=== PATIENT | female | born 1950 | race Caucasian/White ===

== ENCOUNTER 2017-03-06 13:14 | Emergency (ER) | payer OTHER ==
--- NOTE | ~2017-03-06 | CT2 ---
[facility] A Service of [facility] RADIOLOGY TEXT RESULTS PATIENT: GREGORY ZHANG LOCATION: [facility] : 54 UNIT #: [id number] AGE: [address]: Osorio Lau SEX: F ORDER DR: [id number] [facility] [address] [place], [place] [address] [id number] E MR#: [id number] Acc #: [id number] NAME: GREGORY ZHANG. : 1950 SEX: F STUDY DATE/TIME: 03/06/2017 13:56 UNIT: [facility] ROOM: STUDY DESCRIPTION: CT Abd and Pelv W Cont Attending Physician: Osorio Lau Ordering Physician: Osorio Lau Primary Care Physician: Rashel Westbrook M.D. MEDICAL IMAGING REPORT This report is preliminary unless electronic signature is present EXAM CT of the abdomen and pelvis with IV contrast, 03/06/[address] abdomen and pelvis without contrast dated 05/12/2016. HISTORY Patient has back pain. Rule out aortic disease. Pain radiates down the left leg for [address] exam was performed with one or more of the following radiation dose reduction techniques: automatic exposure control, adjustment of mA and/or kV according to patient size, and iterative reconstruction. FINDINGS CT of the abdomen and pelvis were obtained with IV contrast in the axial plane followed by sagittal and coronal reformats. LOWER CHEST: Lungs are relatively well aerated except for minimal atelectatic changes along the inferior left lingula near the left oblique fissure and in the inferior right middle lobe close to the right oblique fissure. There is a moderate hiatal hernia. Heart is of normal size. Mild degenerative changes are in the spine. ABDOMEN: Status post cholecystectomy. Tiny 4.5 mm cyst is seen in the left lobe of the liver, stable. Status post cholecystectomy with expected dilatation of the common bile duct. It is dilated to 1 cm. Visualized spleen, pancreas, kidneys do not demonstrate any well-defined abnormality. There is a nodular exophytic appearance on the right between the tail of the pancreas and the spleen measuring about 9 mm. It is unclear whether it is exophytic from the spleen or from the pancreas. Either way it was also seen on the prior study from 05/12/2016 and it is stable. It has STS. [facility] A Service of [facility] / [facility] RADIOLOGY TEXT RESULTS PATIENT: GREGORY ZHANG LOCATION: [facility] : 54 UNIT #: [id number] AGE: [address]: Osorio Lau SEX: F ORDER DR: normal enhancement of the solid organs without any additional enhancement. Small fatty umbilical hernia is seen. Diverticulosis is noted without evidence of acute diverticulitis. Appendix is within normal limits and is long in the right lower quadrant. Lack of oral contrast limits evaluation of hollow organs of the GI tract. Postoperative changes are noted in the lumbar spine with associated degenerative change. There is dextroscoliosis. Streak artifact from hardware is noted in the lumbar spine. There are pedicular screws noted from L2 to S1 with loosening of bilateral L2 and right S1 pedicular screw. Mild loosening of some of the other screws is difficult to characterize in this study. Mild loosening of the right L5 pedicle cannot be excluded. There is a levoscoliotic component involving the thoracic spine. PELVIS: Atrophied age-appropriate uterus is seen. Urinary bladder is unremarkable. Multiple diverticula are noted in the rectosigmoid colon without evidence of acute diverticulitis. Bilateral SI joint arthritic changes are seen. IMPRESSION 1. No evidence of acute abnormality in the abdomen or pelvis. 2. Diverticulosis, worst in the rectosigmoid colon followed by descending colon. No associated acute diverticulitis. 3. Status post cholecystectomy with expected dilatation of the common bile duct measuring up to the transverse dimension of 1 cm. 4. Moderate hiatal hernia. 5. Normal appendix. 6. Postoperative changes are noted in the lumbar spine as described above. Significant streak artifact is associated with the hardware. There appears to be loosening of bilateral L2 and right S1 screw with suspicious loosening of right L5 screw. Streak artifact from hardware limits evaluation. Varying degrees of degenerative changes are noted at multiple levels but there is also posterior decompression noted from L2 inferiorly to L5-S1 level. Correlate with postoperative note. 7. S-shaped scoliosis of the thoracolumbar spine is seen with associated degenerative disc disease and facet changes. 8. There is a 9 mm soft tissue nodule noted between the pancreas and the spleen exophytically arising from either one of those glands. It is having the normal density of the solid organs and is probably within normal limits, particularly given the stability since 2009. In the CT abdomen study from 2009 the nodule appeared to be arising from the spleen. Benign incidental finding which does not require any additional followup. 9. Tiny 4.5 mm lesion in the left lobe of the liver is probably a small cyst, stable since 2009. Dictated by... Golden Jimenez M.D. [facility] A Service of [facility] / [facility] RADIOLOGY TEXT RESULTS PATIENT: GREGORY ZHANG [id number] : 54 UNIT #: [id number] AGE: [address]: Osorio Lau SEX: F ORDER DR: THIS IS AN ELECTRONICALLY VERIFIED REPORT Golden Jimenez M.D. at 03/07/2017 1:46 PM CPR/noris TD: 03/07/2017 01:02 JOB #: [id number] MEDICAL IMAGING REPORT Page 1 of 1 COPY
[2017-03-06 13:02] LABS: URINE SOURCE CLEAN CATCH
[2017-03-06 13:08] LABS: URINE APPEARANCE CLOUDY; URINE BILIRUBIN NEG (NEG); URINE BLOOD NEG (NEG); URINE COLOR YELLOW; URINE GLUCOSE NEG (NEG); URINE KETONE NEG (NEG); URINE LEUKOCYTE ESTERASE 1+ (NEG); URINE NITRATE NEG (NEG); URINE PROTEIN NEG (NEG); URINE SPECIFIC GRAVITY 1.017 (1.003-1.035)
[2017-03-06 13:10] LABS: CULTURE INDICATED? YES; URBCS1 AUWI 0-2 /[HPF] (0-2); URINE BACTERIA AUWI 4+ (NEGATIVE); URINE SQUAMOUS EPITHELIAL CELL OCC /[HPF]
[~2017-03-06 13:14] MED LIST: ASPIRINEC PO; CRESTOR PO; CYMBALTA30 MG PO; DARVOCET-N 1001 TAB PO; FLAGYL PO; GABAPENTIN300 MG PO; LEXAPRO PO; LODINE PO; LORTAB 7.5-5001 TAB PO; MILK OF MAGNESIA PO; MOBIC15 MG PO; NAPROXEN PO; NASONEX17 GM; NEURONTIN; NEURONTIN PO; NORCO 5/325 TAB1 TAB PO; OXYCODON HCL-1 UDTAB PO; PREDNISONE PO; PRILOSEC20 M1 PO; ROBAXIN 750750 MG PO; SYNTHROID25 MCG PO; ZOLOFT; ZYRTEC PO
[2017-03-06 14:05] LABS: POC - CREATININE 1.16 mg/dL (0.44-1.03)
== END 2017-03-06 15:56 | disposition home or self-care (01) ==
LOC: CED 13:14
PROVIDERS: Emergency Medicine; Nurse Practitioner
DX: M54.42 Lumbago with sciatica, left side (principal); N39.0 Urinary tract infection, site not specified; M19.90 Unspecified osteoarthritis, unspecified site; I10 Essential (primary) hypertension; Z90.49 Acquired absence of other specified parts of digestive tract; Z98.51 Tubal ligation status; Z88.2 Allergy status to sulfonamides; Z88.5 Allergy status to narcotic agent
CPT/HCPCS: 74177; 81003; 82565; 87086; 87088; 87186; 96360; 99284; Q9967

== ENCOUNTER 2017-06-16 21:13 | Emergency (ER) | payer OTHER ==
[~2017-06-16] VITALS: Ht 152.4 cm; Wt 64.0 kg
[2017-06-16 22:27] LABS: BASOPHIL# 0.1 X10e3 (0-0.3); BASOPHIL% 0.8 % (0-2.5); EOSINOPHIL# 0.2 X10e3 (0-0.7); HEMOGLOBIN 12.8 gm/dL (12.0-16.0); LYMPHOCYTE# 3.4 X10e3 (1.0-3.5); LYMPHOCYTE% 37.1 % (17.0-45.0); MEAN CELL VOLUME 93.5 FL (83-96); MEAN CORPUSCULAR HEMOGLOBIN 32.3 PG (28-34); MEAN CORPUSCULAR HGB CONC 34.6 g/dL (30-36); MEAN PLATELET VOLUME 7.1 FL (6.5-11.5); MONOCYTE# 0.5 X10e3 (0-1.0); MONOCYTE% 5.6 % (3.0-12.0); NEUTROPHIL% 54.5 % (40-75); PLATELET COUNT 351 X10e3 (140-420); RED BLOOD COUNT 3.96 X10e (3.90-5.30); WHITE BLOOD COUNT 9.1 X10e3 (4.0-10.5)
[2017-06-16 22:30] LABS: DIFF IND NO
[2017-06-16 22:51] LABS: ALBUMIN SERUM 4.4 g/dL (3.5-5.0); BILIRUBIN,TOTAL 0.3 mg/dL (0.2-2.0); CALCIUM SERUM 9.4 mg/dL (8.4-10.2); CREATININE SERUM 1.1 mg/dL (0.6-1.4); POTASSIUM 3.6 mmol/L (3.5-5.1); PROTEIN TOTAL SERUM 7.5 g/dL (6.0-8.3)
[2017-06-16 22:53] LABS: BILIRUBIN, DIRECT 0.1 mg/dL (0.0-0.2); BILIRUBIN,INDIRECT 0.2 mg/dL (0.0-0.9)
== END 2017-06-17 00:15 | disposition home or self-care (01) ==
LOC: CED 21:13
DX: R10.84 Generalized abdominal pain (principal); K21.9 Gastro-esophageal reflux disease without esophagitis; E03.9 Hypothyroidism, unspecified; Z90.49 Acquired absence of other specified parts of digestive tract; Z88.2 Allergy status to sulfonamides; Z88.5 Allergy status to narcotic agent
CPT/HCPCS: 36415; 80048; 80076; 83690; 85025; 99285